=== PATIENT | female | born 1940 | race Caucasian/White ===

== ENCOUNTER → 2017-06-08 | Outpatient (REF) | payer MEDICARE, OTHER | LOC: M LAB REF 12:23 | PROVIDERS: ATTEND Family Medicine | DX: R30.0 Dysuria (principal) ==

== ENCOUNTER → 2017-12-18 | Outpatient (REF) | payer MEDICARE, OTHER ==
[2017-12-18 13:48] LABS: APPEARANCE, URINE HAZY (CLEAR); BACTERIA, URINE AUTO 2+ (NEGATIVE); BILIRUBIN, URINE AUTO NEGATIVE (NEGATIVE); BLOOD, URINE BLOOD NEGATIVE (NEGATIVE); COLOR, URINE YELLOW (YELLOW); GLUCOSE, URINE (UA) AUTO NEGATIVE (NEGATIVE); KETONE, URINE AUTO NEGATIVE (NEGATIVE); LEUKOCYTE ESTERASE, URINE AUTO NEGATIVE (NEGATIVE); MUCUS, URINE SMALL (NEGATIVE); NITRITE, URINE AUTO NEGATIVE (NEGATIVE); PROTEIN, URINE AUTO NEGATIVE (NEGATIVE); RBC, URINE AUTO 0 /HPF (0-3); SPECIFIC GRAVITY URINE AUTO 1.009 (1.002-1.035); SQUAMOUS EPITHELIAL CELL UR AU 0 /HPF (0-6); UROBILINOGEN, URINE AUTO 0.2 mg/dL (0.0-2.0); WBC, URINE AUTO 1 /HPF (0-3)
== END ==
LOC: M LAB REF 13:10
DX: N39.0 Urinary tract infection, site not specified (principal)
CPT/HCPCS: 81001

== ENCOUNTER → 2018-08-04 | Outpatient (REF) | payer MEDICARE, OTHER ==
[2018-08-04 19:10] LABS: CREATININE FOR GFR 0.85 MG/DL (0.55-1.30); GLOMERULAR FILTRATION RATE > 60.0 (>39)
[2018-08-04 19:10] LABS: BLOOD UREA NITROGEN 15 MG/DL (7-18)
== END ==
LOC: M LAB REF 17:17
DX: Z01.812 Encounter for preprocedural laboratory examination (principal); R91.8 Other nonspecific abnormal finding of lung field
CPT/HCPCS: 82565

== ENCOUNTER → 2018-08-16 | Outpatient (CLI) | payer MEDICARE, OTHER | LOC: M RAD 13:33 | DX: Z01.812 Encounter for preprocedural laboratory examination (principal); I26.99 Other pulmonary embolism without acute cor pulmonale; I51.7 Cardiomegaly; R06.00 Dyspnea, unspecified; R91.8 Other nonspecific abnormal finding of lung field | CPT/HCPCS: 71046 ==

== ENCOUNTER → 2018-08-16 | Outpatient (REF) | payer MEDICARE, OTHER ==
[2018-08-16 17:22] LABS: PLATELET COUNT, AUTOMATED 230 10^3/uL (150-450)
[2018-08-16 17:34] LABS: INR 0.89; PROTHROMBIN TIME 12.1 SECONDS (12.1-14.4)
[2018-08-16 17:35] LABS: PARTIAL THROMBOPLASTIN TIME 28.7 SECONDS (25.4-37.6)
== END ==
LOC: M LAB REF 16:58
DX: Z01.812 Encounter for preprocedural laboratory examination (principal); R91.8 Other nonspecific abnormal finding of lung field

== ENCOUNTER → 2019-01-18 | Outpatient (CLI) | payer MEDICARE, OTHER ==
--- NOTE | 2019-01-18 13:29 | REP ---
Left lower extremity Duplex Doppler venous ultrasound: Real time compression and duplex Doppler interrogation of the left lower extremity deep venous system is performed. The left common femoral, superficial femoral and popliteal veins are fully compressible with transducer pressure and demonstrate normal spontaneous and phasic flow, without evidence of deep venous thrombosis. Impression: No evidence of deep venous thrombosis of the left lower extremity femoral popliteal venous system. Electronically Signed by Jim Beltre MD 01/18/2019 01:20 P
== END ==
LOC: M RAD 12:35
PROVIDERS: ATTEND Internal Medicine Cardiovascular Disease
DX: R60.0 Localized edema (principal)

== ENCOUNTER → 2019-03-08 | Outpatient (REF) | payer MEDICARE, OTHER ==
[2019-03-08 19:16] LABS: BLOOD UREA NITROGEN 21 MG/DL (7-18); CREATININE FOR GFR 0.77 MG/DL (0.55-1.30); GLOMERULAR FILTRATION RATE > 60.0 (>39)
== END ==
LOC: M LAB REF 17:29
PROVIDERS: ATTEND Internal Medicine Pulmonary Disease
DX: J44.9 Chronic obstructive pulmonary disease, unspecified (principal)

== ENCOUNTER → 2019-03-14 | Outpatient (CLI) | payer MEDICARE, OTHER ==
[~2019-03-14] MED LIST: ISOVUE-370 76% 100ML VIAL (Q9967) As Ordered ONE
--- NOTE | 2019-03-14 11:08 | REP ---
The CT of the chest with IV contrast: Comparison is 08/04/2018. This is outside study). The patient has a known mediastinal mass. This mass was biopsied under CT guidance on 09/06/2018. The mediastinal mass is again identified on the study today. There is diffuse enhancement of this mass. There is a ring-shaped calcification along the medial margin of the mass, unchanged from the prior study. The mass today measures 4.0 by 2.7 cm and is not significantly changed from the comparison study. There is no other mediastinal mass or mediastinal adenopathy. There is no hilar adenopathy. There is no axillary adenopathy. There is a 8 ml ground-glass nodule in the right middle lobe on image 55. This is unchanged. There is a 2 ml calcified granuloma in the right lower lobe on image 56 and there are is a 4 ml calcified granuloma posteriorly in the right middle lobe on image 59. These are unchanged. There are no infiltrates. There are no pleural effusions. The thoracic aorta is unremarkable. Cardiac size is borderline enlarged, unchanged. The upper abdomen. There are three hepatic hypodensities, unchanged to in the right lobe and one in the left lobe, the largest is in the right lobe measuring 12 mm. These are unchanged and there are too small for further at characterization by CT. There is no adrenal mass. Impression: Mediastinal mass, unchanged. Calcified granulomas, unchanged. No adenopathy. No infiltrate or pleural effusion. There are three hepatic hypodensities, too small for further characterization by CT, unchanged. Electronically Signed by Jim Parmar MD 03/14/2019 11:00 A
== END ==
LOC: M RAD 08:03
PROVIDERS: ATTEND Thoracic Surgery (Cardiothoracic Vascular Surgery)
DX: R91.8 Other nonspecific abnormal finding of lung field (principal); R16.0 Hepatomegaly, not elsewhere classified
CPT/HCPCS: 71260; Q9967

== ENCOUNTER → 2019-06-16 | Outpatient (REF) | payer MEDICARE, OTHER ==
[2019-06-16 12:07] LABS: BLOOD UREA NITROGEN 14 MG/DL (7-18); CREATININE FOR GFR 0.94 MG/DL (0.55-1.30); GLOMERULAR FILTRATION RATE > 60.0 (>39)
== END ==
LOC: M LABDRAWC 11:05
PROVIDERS: ATTEND Thoracic Surgery (Cardiothoracic Vascular Surgery)
DX: D15.0 Benign neoplasm of thymus (principal)

== ENCOUNTER → 2019-06-17 | Outpatient (CLI) | payer MEDICARE, OTHER ==
--- NOTE | 2019-06-17 15:56 | REP ---
CT chest with IV contrast: History: Benign neoplasm of the thymus. 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 Comparison is made with chest CT study March 14, 2019 and August 06, 2018. CT contrast dose: 75 ml of intravenous Isovue 370 was administered however, there apparently was a failure of the intravenous site and an extravasation occurred. Accordingly, very poor intravascular contrast enhancement was achieved. Images were reviewed and this was discussed with the patient and it was elected not to re-inject her. CT findings: There is a partially calcified anterior mediastinal mass again noted. This measures 4.0 cm in greatest right to left by 3.0 cm in greatest anteroposterior by 3.7 cm in greatest craniocaudal span. On August 06, 2018 and by my measurements, the lesion measured 4.1 x 2.8 x 3.7 cm. It does not appear to have changed noticeably in this 11-month interval. No other mediastinal mass or adenopathy is observed. No pleural or pericardial effusion is seen. There are small low density nonenhancing foci in the liver consistent with cysts which are also unchanged. No adrenal lesion is seen. Visualized upper abdominal structures are unremarkable. The previously noted partially solid or ground-glass opacity in the right middle lobe appears less prominent. There is a granulomatous calcification in the right lower lobe which is unchanged. There is another in the right lower lobe which also appears calcified and unchanged. There is a calcified granuloma in the right middle lobe unchanged. No new pulmonary nodular density is appreciated. There is some mild linear fibrosis in the left base. Impression: 4.0 cm partially calcified anterior mediastinal mass without appreciable growth in the interval since the July 2018 study. No evidence of adenopathy. Electronically Signed by Kj Tellez MD 06/17/2019 07:47 P
== END ==
LOC: M RAD 12:08
PROVIDERS: ATTEND Thoracic Surgery (Cardiothoracic Vascular Surgery)
DX: C38.1 Malignant neoplasm of anterior mediastinum (principal); R91.8 Other nonspecific abnormal finding of lung field; D15.0 Benign neoplasm of thymus
CPT/HCPCS: 71260; Q9967

== ENCOUNTER → 2019-11-25 | Outpatient (CLI) | payer MEDICARE, OTHER ==
--- NOTE | 2019-11-25 14:22 | REP ---
REASON FOR EXAM: Followup benign neoplasm of the thymus. The prior examinations were reviewed, the latest of which is dated 06/17/2019. The lack of intravenous contrast decreases the sensitivity of the exam. The mediastinum and pulmonary edson are unchanged. There is a stable partially calcified soft tissue mass in the anterior mediastinum. There are no pleural or pericardial effusions. The imaged upper abdomen and imaged osseous structures are unchanged. Evaluation of the lung ford shows five new nodules in the right lung, two are in the right upper lobe both in the inferior aspect of the anterior segment, they both measure 7 mm in their greatest dimension. There is a 5 mm sized new nodule in the right middle lobe. There are two new right lower lobe nodules one measures 4 mm and the other measures 5 mm. There is an unchanged incidental calcified granuloma also seen in the right lower lobe. In the left lung there are two new nodules, one is in the upper lobe which measures 4 mm and the other is a pleural based nodule in the left lower lobe also measuring 4 mm. IMPRESSION: 1. Stable appearing mediastinal mass as described above. 2. There are multiple new lung nodules as described above. According to the revised Fleischner's Society criteria followup will be based on the largest nodule which measures 7 mm and for which a [address] scan of the chest is recommended. Electronically Signed by Duc Chiang DO 11/25/2019 03:13 P
== END ==
LOC: M RAD 12:23
PROVIDERS: ATTEND Thoracic Surgery (Cardiothoracic Vascular Surgery)
DX: D15.0 Benign neoplasm of thymus (principal)

== ENCOUNTER → 2020-02-05 | Outpatient (CLI) | payer MEDICARE, OTHER ==
[~2020-02-05] MED LIST changes: +ALEV1TAB PO; +AMLO5TAB6 PO; +BREO1INH3 INH; +IPRA6SP; -ISOVUE-370 76% 100ML VIAL (Q9967) As Ordered ONE; +VITATAB73 PO
== END ==
LOC: M LABSMTC 09:47
PROVIDERS: ATTEND Anesthesiology
DX: Z03.818 Encounter for observation for suspected exposure to other biological agents ruled out (principal); Z11.59 Encounter for screening for other viral diseases
CPT/HCPCS: C9803; U0003

== ENCOUNTER 2020-02-08 09:45 | Day surgery (SDC) | payer MEDICARE, OTHER ==
[~2020-02-08] VITALS: Ht 157.5 cm; Wt 88.5 kg
[~2020-02-08 09:45] MED LIST changes: +NS 1,000 ML IV ONE
--- NOTE | 2020-02-08 10:55 | ROOR ---
Patient Name: Mary Kay Lowery Procedure Date: 02/08/2020 10:30 AM Date of : 1940 Age: 79 Room: [facility] Gender: Female Note Status: Finalized Procedure: Total Colonoscopy to Cecum Indications: Screening in patient at increased risk: Family history of 1st-degree relative with colorectal cancer, High risk colon cancer surveillance: Personal history of colonic polyps Providers: Dmitry Johnson MD Referring MD: Guy Chamberlain MD Requesting Provider: Medicines: Monitored Anesthesia Care Complications: No immediate complications. Procedure: Pre-Anesthesia Assessment: - The heart rate, respiratory rate, oxygen saturations, blood pressure, adequacy of pulmonary ventilation, and response to care were monitored throughout the procedure. The Colonoscope was introduced through the anus and advanced to the cecum, identified by appendiceal orifice and ileocecal valve. The colonoscopy was performed without difficulty. The patient tolerated the procedure well. The quality of the bowel preparation was excellent. Findings: The perianal and digital rectal examinations were normal. Non-bleeding internal hemorrhoids were found during retroflexion. The hemorrhoids were small and Grade I (internal hemorrhoids that do not prolapse). Multiple small and large-mouthed diverticula were found in the recto-sigmoid colon, sigmoid colon and descending colon. The exam was otherwise without abnormality on direct and retroflexion views. Impression: - Non-bleeding internal hemorrhoids. - Diverticulosis in the recto-sigmoid colon, in the sigmoid colon and in the descending colon. - The examination was otherwise normal on direct and retroflexion views. - No specimens collected. - The exam was otherwise normal to the cecum. Recommendation: - Patient has a contact number available for emergencies. The signs and symptoms of potential delayed complications were discussed with the patient. Return to normal activities tomorrow. Written discharge instructions were provided to the patient. - High fiber diet. - Discharge patient to home. - Continue present medications. - Repeat colonoscopy for symptoms only. - Return to referring physician. - The findings and recommendations were discussed with the patient's family. Dmitry Johnson MD Dmitry Johnson MD 02/08/2020 10:55:11 AM Electronically signed by Dmitry Johnson MD Number of Addenda: 0 Note Initiated On: 02/08/2020 10:30 AM Estimated Blood Loss: Estimated blood loss: none.
[2020-02-08] MEDS ORDERED: propofoL 200 MG/20 ML VIAL As Ordered ONE (11:00)
[2020-02-08 11:15] VITALS: BP 124/67
== END 2020-02-08 11:23 | disposition home or self-care (01) ==
LOC: M OPP 09:45
PROVIDERS: ATTEND Internal Medicine Gastroenterology
DX: Z12.11 Encounter for screening for malignant neoplasm of colon (principal); Z80.0 Family history of malignant neoplasm of digestive organs; Z86.010 Personal history of colon polyps; K64.0 First degree hemorrhoids; K57.30 Diverticulosis of large intestine without perforation or abscess without bleeding; Z79.899 Other long term (current) drug therapy

== ENCOUNTER → 2020-05-01 | Outpatient (REF) | payer MEDICARE, OTHER ==
[~2020-05-01] MED LIST changes: +AMLO1TAB24 PO; -AMLO5TAB6 PO; -NS 1,000 ML IV ONE
[2020-05-01 13:53] LABS: BLOOD UREA NITROGEN 22 MG/DL (7-18); CREATININE FOR GFR 0.83 MG/DL (0.55-1.30); GLOMERULAR FILTRATION RATE > 60.0 (>39)
== END ==
LOC: M LABDRAWC 07:25
PROVIDERS: ATTEND Thoracic Surgery (Cardiothoracic Vascular Surgery)
DX: Z01.812 Encounter for preprocedural laboratory examination (principal); R91.8 Other nonspecific abnormal finding of lung field

== ENCOUNTER → 2020-05-08 | Outpatient (CLI) | payer MEDICARE, OTHER ==
[~2020-05-08] MED LIST changes: +ISOVUE-370 76% 100ML VIAL As Ordered ONE
--- NOTE | 2020-05-29 14:25 | REP ---
CONTRAST-ENHANCED CHEST CT: HISTORY: Follow up abnormal lung findings. TECHNIQUE: Axial contrast-enhanced images from the thoracic inlet to the upper abdomen with coronal and sagittal reformations using 75 cc Isovue 370 intravenous contrast material. COMPARISON: Multiple examinations between 11/25/19 and 08/04/18. FINDINGS: The known anterior mediastinal mass with partial rim calcification is unchanged and represents a chronic benign thymic lesion. The bilateral lung ford are well-aerated and demonstrate minimal bibasilar fibroatelectatic changes. The presumed new nodules on 11/25/19 examination have been confirmed to be stable on 08/04/18 examination. A calcified granuloma in the right lower lobe is also identified and stable. No new consolidation, significant nodule or mass lesion is appreciated. Further evaluation demonstrates normal stable appearance to the thoracic aorta, pulmonary vasculature and heart/pericardium. No adenopathy noted. The tracheobronchial tree is patent. No effusion or pneumothorax. Musculoskeletal structures demonstrate age related changes without acute osseous abnormality. Limited upper abdomen demonstrate normal bilateral adrenal glands along with stable hepatic hypodensities. IMPRESSION: 1. Previously suggested new noncalcified nodules have all been confirmed to be stable through 08/04/18 and chronic. 2. No new acute mediastinal or pleuroparenchymal process appreciated. 3. Stable known anterior mediastinal mass, unchanged compared to 2018. [facility]
== END ==
LOC: M RAD 08:08
PROVIDERS: ATTEND Thoracic Surgery (Cardiothoracic Vascular Surgery)
DX: R91.8 Other nonspecific abnormal finding of lung field (principal)
CPT/HCPCS: 71260; Q9967

== ENCOUNTER → 2020-06-01 | Outpatient (REF) | payer MEDICARE, OTHER ==
[~2020-06-01] MED LIST changes: -ISOVUE-370 76% 100ML VIAL As Ordered ONE
[2020-06-01 17:19] LABS: ALBUMIN 4.1 GM/DL (3.2-5.2); ALT/SGPT 25 U/L (12-78); BILIRUBIN,TOTAL 0.6 MG/DL (0.2-1.0); BLOOD UREA NITROGEN 18 MG/DL (7-18); CALCIUM LEVEL 9.5 MG/DL (8.8-10.2); CARBON DIOXIDE LEVEL 30 MEQ/L (21-32); CHLORIDE LEVEL 107 MEQ/L (98-107); CHOLESTEROL LEVEL 212 MG/DL (<200); CHOLESTEROL RISK RATIO 3.164 (<5); FREE T4 1.04 NG/DL (0.76-1.46); GLOMERULAR FILTRATION RATE > 60.0 (>39); GLUCOSE, FASTING 94 MG/DL (70-100); HDL CHOLESTEROL 67 MG/DL (>40); LDL CHOLESTEROL 130 MG/DL (<100); NON-HDL-C 145 MG/DL; POTASSIUM SERUM 4.2 MEQ/L (3.5-5.1); SODIUM LEVEL 141 MEQ/L (136-145); TOTAL PROTEIN 6.8 GM/DL (6.4-8.2); TRIGLYCERIDES LEVEL 77 MG/DL (<150)
== END ==
LOC: M LABDRAWC 15:52
PROVIDERS: ATTEND Family Medicine
DX: I10 Essential (primary) hypertension (principal); E78.00 Pure hypercholesterolemia, unspecified; E07.9 Disorder of thyroid, unspecified

== ENCOUNTER → 2020-10-23 | Outpatient (REF) | payer MEDICARE, OTHER ==
[2020-10-23 18:04] LABS: BLOOD UREA NITROGEN 19 MG/DL (7-18); CREATININE FOR GFR 0.85 MG/DL (0.55-1.30); GLOMERULAR FILTRATION RATE > 60.0 (>39)
== END ==
LOC: M LABDRAWC 16:08
PROVIDERS: ATTEND Orthopaedic Surgery
DX: R22.31 Localized swelling, mass and lump, right upper limb (principal)

== ENCOUNTER → 2020-11-26 | Outpatient (CLI) | payer MEDICARE, OTHER ==
--- NOTE | 2020-11-26 11:40 | REP ---
INDICATION: EZRA AIRAM OF THYMUS, COPD COMPARISON: Multiple examinations dating through 08/06/2018 TECHNIQUE: Axial noncontrast images from the thoracic inlet to the upper abdomen with coronal and sagittal reformations. This CT examination was performed using the following dose reduction techniques: Automated exposure control, adjustment of mA and/or kv according to the patient's size, and use of iterative reconstruction technique. FINDINGS: The bilateral lung ford are relatively well aerated with few small scattered calcified and noncalcified densities again noted and relatively unchanged. No significant focal consolidation or mass lesion. No pleural effusion. No pneumothorax. Tracheobronchial tree is patent. Mediastinum demonstrates normal thoracic aorta, pulmonary vasculature, and heart/pericardium. Stable partially rim calcified anterior mediastinal thymic lesion measuring roughly 4.4 cm maximal diameter is essentially unchanged. No significant acute adenopathy. Musculoskeletal structures are intact. IMPRESSION: 1. Stable scattered chronic interstitial changes and small scattered calcified and noncalcified nodular densities relatively unchanged compared through 2018. 2. Stable benign appearing anteromedial mediastinal/thymic lesion. 3. No new acute mediastinal or pleuroparenchymal process appreciated. <Electronically signed by Christopher Perez > 11/26/20 [id number]
== END ==
LOC: M RAD 10:50
PROVIDERS: ATTEND Thoracic Surgery (Cardiothoracic Vascular Surgery)
DX: D15.0 Benign neoplasm of thymus (principal); J44.9 Chronic obstructive pulmonary disease, unspecified

== ENCOUNTER → 2020-12-07 | Outpatient (REF) | payer MEDICARE, OTHER ==
[2020-12-07 12:15] LABS: ALBUMIN 3.9 GM/DL (3.2-5.2); ALT/SGPT 23 U/L (12-78); BILIRUBIN,TOTAL 0.6 MG/DL (0.2-1.0); BLOOD UREA NITROGEN 17 MG/DL (7-18); CALCIUM LEVEL 9.4 MG/DL (8.8-10.2); CARBON DIOXIDE LEVEL 31 MEQ/L (21-32); CHLORIDE LEVEL 107 MEQ/L (98-107); CHOLESTEROL LEVEL 211 MG/DL (<200); CHOLESTEROL RISK RATIO 3.102 (<5); CREATININE FOR GFR 0.78 MG/DL (0.55-1.30); GLOMERULAR FILTRATION RATE > 60.0 (>39); GLUCOSE, FASTING 95 MG/DL (70-100); HDL CHOLESTEROL 68 MG/DL (>40); LDL CHOLESTEROL 123 MG/DL (<100); NON-HDL-C 143 MG/DL; POTASSIUM SERUM 4.5 MEQ/L (3.5-5.1); SODIUM LEVEL 140 MEQ/L (136-145); TOTAL PROTEIN 6.8 GM/DL (6.4-8.2); TRIGLYCERIDES LEVEL 101 MG/DL (<150)
== END ==
LOC: M LABDRAWC 11:07
PROVIDERS: ATTEND Family Medicine
DX: I10 Essential (primary) hypertension (principal); E78.00 Pure hypercholesterolemia, unspecified; E07.9 Disorder of thyroid, unspecified

== ENCOUNTER → 2021-06-12 | Outpatient (REF) | payer MEDICARE, OTHER ==
[2021-06-12 16:10] LABS: BASO % 0.8 % (0.0-1.0); EOS # 0.2 10^3/uL (0.0-0.5); EOS % 3.3 % (0.0-3.0); HEMATOCRIT 38.2 % (36.0-47.0); HEMOGLOBIN 12.6 g/dl (12.0-15.5); LYMPH # 1.6 10^3/uL (1.5-5.0); LYMPH % 30.1 % (24.0-44.0); MEAN CORPUSCULAR HEMOGLOBIN 34.1 pg (27.0-33.0); MEAN CORPUSCULAR VOLUME 103.2 fl (80.0-96.0); MONO # 0.7 10^3/uL (0.0-0.8); MONO % 12.5 % (2.0-8.0); NEUTROPHILS # 2.8 10^3/uL (1.5-8.5); NEUTROPHILS % 52.9 % (36.0-66.0); PLATELET COUNT, AUTOMATED 223 10^3/uL (150-450); WHITE BLOOD COUNT 5.2 10^3/uL (4.0-10.0)
[2021-06-12 16:45] LABS: ALBUMIN 3.5 GM/DL (3.2-5.2); ALT/SGPT 27 U/L (12-78); BILIRUBIN,TOTAL 0.3 MG/DL (0.2-1.0); BLOOD UREA NITROGEN 17 MG/DL (7-18); CALCIUM LEVEL 9.7 MG/DL (8.8-10.2); CARBON DIOXIDE LEVEL 30 MEQ/L (21-32); CHLORIDE LEVEL 110 MEQ/L (98-107); CHOLESTEROL LEVEL 179 MG/DL (<200); CHOLESTEROL RISK RATIO 3.086 (<5); CREATININE FOR GFR 0.71 MG/DL (0.55-1.30); FREE THYROXINE INDEX 2.7 % (1.3-4.8); GLOMERULAR FILTRATION RATE > 60.0 (>32); GLUCOSE, FASTING 100 MG/DL (70-100); HDL CHOLESTEROL 58 MG/DL (>40); LDL CHOLESTEROL 92 MG/DL (<100); NON-HDL-C 121 MG/DL; POTASSIUM SERUM 4.5 MEQ/L (3.5-5.1); SODIUM LEVEL 141 MEQ/L (136-145); T UPTAKE 33 % (30-39); THYROXINE (T4) 8.1 UG/DL (4.5-12.0); TOTAL PROTEIN 6.3 GM/DL (6.4-8.2); TRIGLYCERIDES LEVEL 144 MG/DL (<150)
== END ==
LOC: M LABDRAWC 15:42
PROVIDERS: ATTEND Family Medicine
DX: I10 Essential (primary) hypertension (principal); E78.00 Pure hypercholesterolemia, unspecified; E07.9 Disorder of thyroid, unspecified

== ENCOUNTER → 2021-06-26 | Outpatient (CLI) | payer MEDICARE, OTHER ==
--- NOTE | 2021-06-26 15:37 | REP ---
INDICATION: BENIGN NEOPLASM OF SINUS COMPARISON: Multiple the latest 11/26/2020 also without contrast TECHNIQUE: Standard helical technique without contrast FINDINGS: Once again, there is a partially calcified anterior mediastinal mass which is unchanged. Once again, this measures approximately 4 cm in its greatest dimension. No additional mediastinal masses have developed. There is no evidence of hilar adenopathy. Stable subcarinal lymph nodes are noted status quo. The largest measures 1.1 cm. That lymph node has been stable since CT of the chest of 06/17/2019. No pleural or pericardial effusions have developed. There is no significant change in appearance of the imaged upper abdomen or imaged osseous structures. Evaluation of the lung ford shows an unchanged 6 mm size nodule in the right middle lobe region. This abuts the fissure and could potentially be in the inferior most aspect of the anterior segment of the right upper lobe. It is slightly obscured by motion artifact. There is an additional nodule in the right middle lobe which measures 5 mm. This is better imaged on today's exam but also appears stable compared other older priors as well. Once again, there are numerous pulmonary nodules in the 2-4 mm range. These are too numerous to count or individually assess. These also appears stable compared to the 06/17/[address] Note is again made of incidental calcified granulomas. No definite new abnormal nodules, masses, or opacities have developed. IMPRESSION: Stable CT findings as described above. <Electronically signed by Duc Chiang > 06/26/21 [id number]
== END ==
LOC: M PLAIMG 14:33
PROVIDERS: ATTEND Thoracic Surgery (Cardiothoracic Vascular Surgery)
DX: D15.0 Benign neoplasm of thymus (principal)

== ENCOUNTER → 2021-07-02 | Outpatient (CLI) | payer MEDICARE, OTHER ==
--- NOTE | 2021-07-02 11:42 | REP ---
INDICATION: ABD BLOATING. COMPARISON: None. TECHNIQUE: Transabdominal ultrasound FINDINGS: Multiple ultrasonographic images of the liver show the hepatic parenchymal echo pattern to be within normal limits. There is an incidental 1 cm sized anechoic structure which exhibits posterior wall enhancement and increased through transmission consistent with simple cysts. There is no intrahepatic or extrahepatic ductal dilatation. The common bile duct measures 4 mm. Multiple ultrasonographic images of the gallbladder show no abnormal echogenic foci within the gallbladder lumen, gallbladder wall thickening, or pericholecystic edema. The imaged portion of the pancreas is within normal limits. The spleen measures 9 x 10.3 x4.2 cm. No splenic or perisplenic abnormalities are noted. The right kidney measures 11.1 x 5.7 x 4.9 cm. The renal cortical echotexture is within normal limits. Corticomedullary differentiation is preserved. There is no hydronephrosis. There is irregular fullness of the mid polar region laterally. The left kidney measures 12.8 x 4.2 x 5.5 cm. The renal cortical echotexture is within normal limits. Corticomedullary differentiation is preserved. There is no hydronephrosis. There is fullness of the mid polar region laterally.. The imaged portion of the abdominal aorta is within normal limits. There is no evidence of free fluid. IMPRESSION: 1. Probable bilateral renal cortical lobulations as described above, however, since are no priors comparison pre and postcontrast enhanced renal CT is recommended for complete evaluation. 2. Incidental simple hepatic cyst <Electronically signed by Duc Chiang > 07/02/21 [id number]
--- NOTE | 2021-07-02 14:41 | REP ---
INDICATION: ABD BLOATING. COMPARISON: None. TECHNIQUE: Real-time sonographic evaluation of pelvis performed utilizing transabdominal technique. FINDINGS: The bladder measures 4.6 x 3.4 x 7.6 cm with no gross abnormality. No pelvic mass is seen. No free fluid is seen. The uterus and ovaries have been surgically removed previously. IMPRESSION: Negative pelvic ultrasound status post JOE BSO. <Electronically signed by Jim Beltre > 07/02/21 [id number]
== END ==
LOC: M RAD 08:57
PROVIDERS: ATTEND Family Medicine
DX: R14.0 Abdominal distension (gaseous) (principal)

== ENCOUNTER → 2021-07-03 | Outpatient (REF) | payer MEDICARE, OTHER ==
[2021-07-03 16:10] LABS: BASO % 0.5 % (0.0-1.0); EOS # 0.1 10^3/uL (0.0-0.5); EOS % 1.5 % (0.0-3.0); HEMATOCRIT 40.9 % (36.0-47.0); HEMOGLOBIN 13.4 g/dl (12.0-15.5); LYMPH # 0.9 10^3/uL (1.5-5.0); LYMPH % 15.3 % (24.0-44.0); MEAN CORPUSCULAR HGB CONC 32.8 g/dl (32.0-36.5); MEAN CORPUSCULAR VOLUME 103.8 fl (80.0-96.0); MONO # 0.8 10^3/uL (0.0-0.8); MONO % 12.4 % (2.0-8.0); NEUTROPHILS # 4.3 10^3/uL (1.5-8.5); PLATELET COUNT, AUTOMATED 180 10^3/uL (150-450); RED BLOOD COUNT 3.94 10^6/uL (4.00-5.40); WHITE BLOOD COUNT 6.1 10^3/uL (4.0-10.0)
[2021-07-03 16:36] LABS: BLOOD UREA NITROGEN 20 MG/DL (7-18); CALCIUM LEVEL 9.7 MG/DL (8.8-10.2); CARBON DIOXIDE LEVEL 31 MEQ/L (21-32); CHLORIDE LEVEL 107 MEQ/L (98-107); CREATININE FOR GFR 0.77 MG/DL (0.55-1.30); GLOMERULAR FILTRATION RATE > 60.0 (>32); GLUCOSE, FASTING 98 MG/DL (70-100); POTASSIUM SERUM 4.8 MEQ/L (3.5-5.1); SODIUM LEVEL 139 MEQ/L (136-145)
== END ==
LOC: M LABDRAWC 15:43
PROVIDERS: ATTEND Family Medicine
DX: D75.89 Other specified diseases of blood and blood-forming organs (principal); I10 Essential (primary) hypertension

== ENCOUNTER → 2021-12-18 | Outpatient (REF) | payer MEDICARE, OTHER ==
[2021-12-18 11:47] LABS: BASO % 0.6 % (0.0-1.0); EOS # 0.1 10^3/uL (0.0-0.5); HEMATOCRIT 38.8 % (36.0-47.0); LYMPH # 1.9 10^3/uL (1.5-5.0); LYMPH % 38.1 % (24.0-44.0); MEAN CORPUSCULAR HEMOGLOBIN 33.6 pg (27.0-33.0); MEAN CORPUSCULAR HGB CONC 33.5 g/dl (32.0-36.5); MEAN CORPUSCULAR VOLUME 100.3 fl (80.0-96.0); MONO # 0.6 10^3/uL (0.0-0.8); MONO % 12.1 % (2.0-8.0); NEUTROPHILS # 2.3 10^3/uL (1.5-8.5); PLATELET COUNT, AUTOMATED 204 10^3/uL (150-450); RED BLOOD COUNT 3.87 10^6/uL (4.00-5.40); WHITE BLOOD COUNT 4.9 10^3/uL (4.0-10.0)
[2021-12-18 12:13] LABS: ALT/SGPT 27 U/L (12-78); BILIRUBIN,TOTAL 0.6 MG/DL (0.2-1.0); BLOOD UREA NITROGEN 16 MG/DL (7-18); CARBON DIOXIDE LEVEL 28 MEQ/L (21-32); CHLORIDE LEVEL 108 MEQ/L (98-107); CHOLESTEROL LEVEL 200 MG/DL (<200); CHOLESTEROL RISK RATIO 2.857 (<5); CREATININE FOR GFR 0.71 MG/DL (0.55-1.30); GLOMERULAR FILTRATION RATE > 60.0 (>32); GLUCOSE, FASTING 92 MG/DL (70-100); HDL CHOLESTEROL 70 MG/DL (>40); LDL CHOLESTEROL 115 MG/DL (<100); NON-HDL-C 130 MG/DL; POTASSIUM SERUM 4.5 MEQ/L (3.5-5.1); SODIUM LEVEL 142 MEQ/L (136-145); TOTAL PROTEIN 6.8 GM/DL (6.4-8.2); TRIGLYCERIDES LEVEL 74 MG/DL (<150)
== END ==
LOC: M LABDRAWC 11:09
PROVIDERS: ATTEND Family Medicine
DX: I10 Essential (primary) hypertension (principal); E78.00 Pure hypercholesterolemia, unspecified

== ENCOUNTER → 2021-12-23 | Outpatient (REF) | payer MEDICARE, OTHER ==
[2021-12-23 20:14] LABS: FOLATE > 24.0 NG/ML
[2021-12-24 18:02] LABS: VITAMIN B12 LEVEL 1239 PG/ML
== END ==
LOC: M LAB REF 12:11
PROVIDERS: ATTEND Family Medicine
DX: R30.0 Dysuria (principal); D72.821 Monocytosis (symptomatic)

== ENCOUNTER → 2021-12-25 | Outpatient (CLI) | payer MEDICARE, OTHER | LOC: M RAD 09:27 | PROVIDERS: ATTEND Internal Medicine Pulmonary Disease | DX: D15.0 Benign neoplasm of thymus (principal) ==

== ENCOUNTER → 2022-03-25 | Outpatient (CLI) | payer MEDICARE, OTHER | LOC: M PLAIMG 13:20 | PROVIDERS: ATTEND Orthopaedic Surgery | DX: M47.26 Other spondylosis with radiculopathy, lumbar region (principal) ==

== ENCOUNTER → 2022-05-20 | Outpatient (REF) | payer MEDICARE, OTHER ==
[2022-05-20 11:48] LABS: PLATELET COUNT, AUTOMATED 205 10^3/uL (150-450)
[2022-05-20 12:02] LABS: INR 0.94
[2022-05-20 12:03] LABS: PARTIAL THROMBOPLASTIN TIME 28.9 SECONDS (25.9-37.0)
[2022-05-20 12:28] LABS: COLLAGEN EPINEPHRINE 131 SECONDS (74-162)
== END ==
LOC: M LABDRAWC 10:58
PROVIDERS: ATTEND Physical Medicine & Rehabilitation
DX: M47.26 Other spondylosis with radiculopathy, lumbar region (principal); Z79.01 Long term (current) use of anticoagulants

== ENCOUNTER → 2022-06-04 | Outpatient (CLI) | payer MEDICARE, OTHER | LOC: M RAD 10:11 | PROVIDERS: ATTEND Surgery | DX: C37 Malignant neoplasm of thymus (principal) ==

== ENCOUNTER → 2022-06-18 | Outpatient (REF) | payer MEDICARE, OTHER ==
[2022-06-18 12:40] LABS: BASO % 0.6 % (0.0-1.0); EOS # 0.1 10^3/uL (0.0-0.5); EOS % 2.7 % (0.0-3.0); HEMOGLOBIN 13.1 g/dl (12.0-15.5); LYMPH # 1.7 10^3/uL (1.5-5.0); LYMPH % 32.7 % (24.0-44.0); MEAN CORPUSCULAR HEMOGLOBIN 33.4 pg (27.0-33.0); MEAN CORPUSCULAR VOLUME 104.6 fl (80.0-96.0); MONO # 0.6 10^3/uL (0.0-0.8); MONO % 10.7 % (2.0-8.0); NEUTROPHILS # 2.7 10^3/uL (1.5-8.5); NEUTROPHILS % 52.9 % (36.0-66.0); PLATELET COUNT, AUTOMATED 204 10^3/uL (150-450); RED BLOOD COUNT 3.92 10^6/uL (4.00-5.40); WHITE BLOOD COUNT 5.1 10^3/uL (4.0-10.0)
[2022-06-18 13:20] LABS: ALBUMIN 3.7 GM/DL (3.2-5.2); ALT/SGPT 22 U/L (12-78); BILIRUBIN,TOTAL 0.4 MG/DL (0.2-1.0); BLOOD UREA NITROGEN 16 MG/DL (7-18); CALCIUM LEVEL 9.1 MG/DL (8.8-10.2); CARBON DIOXIDE LEVEL 28 MEQ/L (21-32); CHLORIDE LEVEL 109 MEQ/L (98-107); CHOLESTEROL LEVEL 201 MG/DL (<200); CHOLESTEROL RISK RATIO 3.045 (<5); CREATININE FOR GFR 0.84 MG/DL (0.55-1.30); GLOMERULAR FILTRATION RATE > 60.0 (>32); GLUCOSE, FASTING 134 MG/DL (70-100); HDL CHOLESTEROL 66 MG/DL (>40); LDL CHOLESTEROL 103 MG/DL (<100); NON-HDL-C 135 MG/DL; POTASSIUM SERUM 4.4 MEQ/L (3.5-5.1); SODIUM LEVEL 143 MEQ/L (136-145); TOTAL PROTEIN 6.6 GM/DL (6.4-8.2); TRIGLYCERIDES LEVEL 160 MG/DL (<150)
== END ==
LOC: M LABDRAWC 11:32
PROVIDERS: ATTEND Family Medicine
DX: E78.00 Pure hypercholesterolemia, unspecified (principal); K21.9 Gastro-esophageal reflux disease without esophagitis; E07.9 Disorder of thyroid, unspecified

== ENCOUNTER → 2022-07-10 | Outpatient (REF) | payer MEDICARE, OTHER ==
[2022-07-10 12:30] LABS: BASO # 0.1 10^3/uL (0.0-0.2); BASO % 0.9 % (0.0-1.0); EOS # 0.2 10^3/uL (0.0-0.5); HEMATOCRIT 40.1 % (36.0-47.0); HEMOGLOBIN 12.9 g/dl (12.0-15.5); LYMPH # 1.7 10^3/uL (1.5-5.0); LYMPH % 31.4 % (24.0-44.0); MEAN CORPUSCULAR HEMOGLOBIN 33.7 pg (27.0-33.0); MEAN CORPUSCULAR HGB CONC 32.2 g/dl (32.0-36.5); MEAN CORPUSCULAR VOLUME 104.7 fl (80.0-96.0); MONO # 0.7 10^3/uL (0.0-0.8); MONO % 13.2 % (2.0-8.0); NEUTROPHILS # 2.7 10^3/uL (1.5-8.5); NEUTROPHILS % 51.3 % (36.0-66.0); PLATELET COUNT, AUTOMATED 196 10^3/uL (150-450); RED BLOOD COUNT 3.83 10^6/uL (4.00-5.40); WHITE BLOOD COUNT 5.3 10^3/uL (4.0-10.0)
[2022-07-10 13:01] LABS: BLOOD UREA NITROGEN 18 MG/DL (7-18); CALCIUM LEVEL 9.4 MG/DL (8.8-10.2); CARBON DIOXIDE LEVEL 30 MEQ/L (21-32); CHLORIDE LEVEL 108 MEQ/L (98-107); GLOMERULAR FILTRATION RATE > 60.0 (>32); GLUCOSE, FASTING 96 MG/DL (70-100); POTASSIUM SERUM 4.7 MEQ/L (3.5-5.1); SODIUM LEVEL 141 MEQ/L (136-145)
[2022-07-10 13:24] LABS: HEMOGLOBIN A1c 5.6 %
[2022-07-11 10:00] LABS: ATYPICAL LYMPH 3 % (0-5); EOSINOPHILS 4 % (0-3); LYMPHOCYTES 29 % (16-44); MONOCYTES 14 % (0-5); MYELOCYTES 1 % (0-0); NEUTROPHILS 46 % (28-66)
[2022-07-11 10:03] LABS: PLATELET ESTIMATE NORMAL (NORMAL)
== END ==
LOC: M LABDRAWC 11:39
PROVIDERS: ATTEND Family Medicine
DX: D75.89 Other specified diseases of blood and blood-forming organs (principal); I10 Essential (primary) hypertension; R73.01 Impaired fasting glucose

== ENCOUNTER → 2022-12-18 | Outpatient (REF) | payer MEDICARE, OTHER ==
[2022-12-18 12:33] LABS: BASO % 0.8 % (0.0-1.0); EOS # 0.1 10^3/uL (0.0-0.5); EOS % 2.7 % (0.0-3.0); HEMATOCRIT 41.5 % (36.0-47.0); HEMOGLOBIN 13.3 g/dl (12.0-15.5); LYMPH # 1.2 10^3/uL (1.5-5.0); LYMPH % 25.6 % (24.0-44.0); MEAN CORPUSCULAR HEMOGLOBIN 33.8 pg (27.0-33.0); MEAN CORPUSCULAR VOLUME 105.3 fl (80.0-96.0); MONO # 0.6 10^3/uL (0.0-0.8); MONO % 13.2 % (2.0-8.0); NEUTROPHILS # 2.7 10^3/uL (1.5-8.5); NEUTROPHILS % 57.3 % (36.0-66.0); PLATELET COUNT, AUTOMATED 230 10^3/uL (150-450); RED BLOOD COUNT 3.94 10^6/uL (4.00-5.40); WHITE BLOOD COUNT 4.8 10^3/uL (4.0-10.0)
[2022-12-18 12:34] LABS: BLOOD UREA NITROGEN 16 MG/DL (9-23); CALCIUM LEVEL 9.4 MG/DL (8.3-10.6); CARBON DIOXIDE LEVEL 30 MMOL/L (20-31); CHLORIDE LEVEL 107 MMOL/L (98-107); CREATININE FOR GFR 0.81 MG/DL (0.55-1.30); GLOMERULAR FILTRATION RATE > 60.0 (>32); GLUCOSE, FASTING 96 MG/DL (74-106); POTASSIUM SERUM 4.3 MMOL/L (3.5-5.1); SODIUM LEVEL 141 MMOL/L (136-145)
[2022-12-18 12:38] LABS: FERRITIN 90.6 NG/ML (7.3-270.7)
[2022-12-18 13:18] LABS: HEMOGLOBIN A1c 5.6 % (4.0-6.0)
== END ==
LOC: M LABDRAWC 11:21
PROVIDERS: ATTEND Family Medicine
DX: D64.9 Anemia, unspecified (principal); I10 Essential (primary) hypertension; Z79.899 Other long term (current) drug therapy

== ENCOUNTER → 2023-06-09 | Outpatient (CLI) | payer MEDICARE, OTHER ==
[~2023-06-09] MED LIST changes: +FAMO20TA5; +FEXO-112; +FOLI1TAB11 PO; +NOXI1TAB PO; +REST0.05; +VITA100C8; +VITA100T59 PO; +ZINC220CA PO
== END ==
LOC: M PLAIMG 09:13
PROVIDERS: ATTEND Internal Medicine Pulmonary Disease
DX: R91.8 Other nonspecific abnormal finding of lung field (principal)

== ENCOUNTER → 2023-12-21 | Outpatient (REF) | payer MEDICARE, OTHER ==
[2023-12-21 11:58] LABS: BASO # 0.1 10^3/uL (0.0-0.2); BASO % 0.9 % (0.0-1.0); EOS # 0.1 10^3/uL (0.0-0.5); EOS % 2.6 % (0.0-3.0); HEMATOCRIT 39.9 % (36.0-47.0); LYMPH # 1.6 10^3/uL (1.5-5.0); LYMPH % 29.7 % (24.0-44.0); MEAN CORPUSCULAR HEMOGLOBIN 34.1 pg (27.0-33.0); MEAN CORPUSCULAR HGB CONC 32.6 g/dl (32.0-36.5); MEAN CORPUSCULAR VOLUME 104.7 fl (80.0-96.0); MONO # 0.8 10^3/uL (0.0-0.8); MONO % 14.4 % (2.0-8.0); NEUTROPHILS # 2.8 10^3/uL (1.5-8.5); NEUTROPHILS % 52.2 % (36.0-66.0); PLATELET COUNT, AUTOMATED 217 10^3/uL (150-450); RED BLOOD COUNT 3.81 10^6/uL (4.00-5.40); WHITE BLOOD COUNT 5.4 10^3/uL (4.0-10.0)
[2023-12-21 13:22] LABS: ALBUMIN 3.8 G/DL (3.2-5.2); ALKALINE PHOSPHATASE 50 U/L (46-116); ALT/SGPT 22 U/L (7.0-40); AST/SGOT 14 U/L (<34); BILIRUBIN,TOTAL 0.5 MG/DL (0.3-1.2); BLOOD UREA NITROGEN 18 MG/DL (9-23); CALCIUM LEVEL 9.2 MG/DL (8.3-10.6); CARBON DIOXIDE LEVEL 29 MMOL/L (20-31); CHLORIDE LEVEL 105 MMOL/L (98-107); CHOLESTEROL LEVEL 202 MG/DL (<200); CHOLESTEROL RISK RATIO 2.94 (<5); CREATININE FOR GFR 0.79 MG/DL (0.55-1.30); GLOMERULAR FILTRATION RATE > 60.0 (>32); GLUCOSE, FASTING 92 MG/DL (74-106); HDL CHOLESTEROL 68.5 MG/DL (>40); LDL CHOLESTEROL 118.7 MG/DL (<100); NON-HDL-C 133.5 MG/DL; POTASSIUM SERUM 4.2 MMOL/L (3.5-5.1); SODIUM LEVEL 140 MMOL/L (136-145); THYROID STIMULATING HORMONE 2.526 uIU/ML (0.55-4.78); TOTAL PROTEIN 6.5 G/DL (5.7-8.2); TRIGLYCERIDES LEVEL 74 MG/DL (<150)
== END ==
LOC: M LABDRAWC 10:39
PROVIDERS: ATTEND Family Medicine
DX: I10 Essential (primary) hypertension (principal); E78.00 Pure hypercholesterolemia, unspecified; E07.9 Disorder of thyroid, unspecified

== ENCOUNTER → 2024-03-02 | Outpatient (REF) | payer MEDICARE, OTHER ==
[2024-03-02 11:20] LABS: BASO % 0.6 % (0.0-1.0); EOS # 0.1 10^3/uL (0.0-0.5); EOS % 2.5 % (0.0-3.0); HEMATOCRIT 38.8 % (36.0-47.0); LYMPH # 1.7 10^3/uL (1.5-5.0); LYMPH % 32.6 % (24.0-44.0); MEAN CORPUSCULAR HEMOGLOBIN 34.4 pg (27.0-33.0); MEAN CORPUSCULAR HGB CONC 33.5 g/dl (32.0-36.5); MEAN CORPUSCULAR VOLUME 102.6 fl (80.0-96.0); MONO # 0.6 10^3/uL (0.0-0.8); MONO % 10.8 % (2.0-8.0); NEUTROPHILS # 2.8 10^3/uL (1.5-8.5); NEUTROPHILS % 53.3 % (36.0-66.0); PLATELET COUNT, AUTOMATED 183 10^3/uL (150-450); RED BLOOD COUNT 3.78 10^6/uL (4.00-5.40); WHITE BLOOD COUNT 5.2 10^3/uL (4.0-10.0)
[2024-03-02 11:31] LABS: INR 0.94; PARTIAL THROMBOPLASTIN TIME 27.3 SECONDS (24.8-34.2); PROTHROMBIN TIME 12.3 SECONDS (12.5-14.5)
[2024-03-02 11:33] LABS: ALBUMIN 3.5 G/DL (3.2-5.2); ALKALINE PHOSPHATASE 47 U/L (46-116); ALT/SGPT 22 U/L (7.0-40); AST/SGOT 12 U/L (<34); BILIRUBIN,TOTAL 0.5 MG/DL (0.3-1.2); BLOOD UREA NITROGEN 17 MG/DL (9-23); CALCIUM LEVEL 9.2 MG/DL (8.3-10.6); CARBON DIOXIDE LEVEL 30 MMOL/L (20-31); CHLORIDE LEVEL 108 MMOL/L (98-107); CREATININE FOR GFR 0.74 MG/DL (0.55-1.30); GLOMERULAR FILTRATION RATE > 60.0 (>32); GLUCOSE, FASTING 100 MG/DL (74-106); IRON (FE) 90 UG/DL (50-170); PERCENT SATURATION 30.4 % (13.2-45.0); POTASSIUM SERUM 4.3 MMOL/L (3.5-5.1); SODIUM LEVEL 140 MMOL/L (136-145); TOTAL IRON BINDING CAPACITY 296 UG/DL (250-425); TOTAL PROTEIN 5.9 G/DL (5.7-8.2)
[2024-03-02 11:35] LABS: FERRITIN 74.5 NG/ML (7.3-270.7); HEMOGLOBIN A1c 5.6 % (4.0-6.0); VITAMIN B12 LEVEL 855 PG/ML (211-911)
== END ==
LOC: M LABDRAWC 11:09
PROVIDERS: ATTEND Physician Assistant Surgical
DX: Z01.812 Encounter for preprocedural laboratory examination (principal); D64.9 Anemia, unspecified; Z13.1 Encounter for screening for diabetes mellitus

== ENCOUNTER → 2024-04-19 | Outpatient (REF) | payer MEDICARE, OTHER ==
[~2024-04-19] MED LIST changes: +APPLTAB3 PO; +MONT5CHW10 PO
[2024-04-19 12:22] LABS: BASO % 0.7 % (0.0-1.0); EOS # 0.1 10^3/uL (0.0-0.5); EOS % 2.6 % (0.0-3.0); HEMATOCRIT 39.9 % (36.0-47.0); HEMOGLOBIN 13.3 g/dl (12.0-15.5); LYMPH # 1.6 10^3/uL (1.5-5.0); LYMPH % 38.2 % (24.0-44.0); MEAN CORPUSCULAR HEMOGLOBIN 34.3 pg (27.0-33.0); MEAN CORPUSCULAR HGB CONC 33.3 g/dl (32.0-36.5); MEAN CORPUSCULAR VOLUME 102.8 fl (80.0-96.0); MONO # 0.9 10^3/uL (0.0-0.8); MONO % 21.2 % (2.0-8.0); NEUTROPHILS # 1.6 10^3/uL (1.5-8.5); NEUTROPHILS % 36.8 % (36.0-66.0); PLATELET COUNT, AUTOMATED 179 10^3/uL (150-450); RED BLOOD COUNT 3.88 10^6/uL (4.00-5.40); WHITE BLOOD COUNT 4.3 10^3/uL (4.0-10.0)
[2024-04-19 12:56] LABS: ALBUMIN 3.7 G/DL (3.2-5.2); ALKALINE PHOSPHATASE 48 U/L (46-116); ALT/SGPT 20 U/L (7.0-40); AST/SGOT 13 U/L (<34); BILIRUBIN,TOTAL 0.4 MG/DL (0.3-1.2); BLOOD UREA NITROGEN 16 MG/DL (9-23); CALCIUM LEVEL 9.5 MG/DL (8.3-10.6); CARBON DIOXIDE LEVEL 30 MMOL/L (20-31); CHLORIDE LEVEL 109 MMOL/L (98-107); CREATININE FOR GFR 0.88 MG/DL (0.55-1.30); GLOMERULAR FILTRATION RATE > 60.0 (>32); GLUCOSE, FASTING 95 MG/DL (74-106); POTASSIUM SERUM 4.4 MMOL/L (3.5-5.1); SODIUM LEVEL 143 MMOL/L (136-145); THYROID STIMULATING HORMONE 1.596 uIU/ML (0.55-4.78); TOTAL PROTEIN 6.5 G/DL (5.7-8.2)
== END ==
LOC: M LABDRAWC 11:51
PROVIDERS: ATTEND Family Medicine
DX: J44.9 Chronic obstructive pulmonary disease, unspecified (principal); E07.9 Disorder of thyroid, unspecified; I10 Essential (primary) hypertension

== ENCOUNTER → 2024-08-03 | Outpatient (REF) | payer MEDICARE, OTHER ==
[2024-08-03 12:34] LABS: BASO % 0.6 % (0.0-1.0); EOS # 0.1 10^3/uL (0.0-0.5); HEMATOCRIT 40.1 % (36.0-47.0); HEMOGLOBIN 12.9 g/dl (12.0-15.5); LYMPH # 1.6 10^3/uL (1.5-5.0); LYMPH % 23.8 % (24.0-44.0); MEAN CORPUSCULAR HEMOGLOBIN 33.8 pg (27.0-33.0); MEAN CORPUSCULAR HGB CONC 32.2 g/dl (32.0-36.5); MONO # 0.7 10^3/uL (0.0-0.8); MONO % 10.3 % (2.0-8.0); NEUTROPHILS # 4.3 10^3/uL (1.5-8.5); PLATELET COUNT, AUTOMATED 243 10^3/uL (150-450); RED BLOOD COUNT 3.82 10^6/uL (4.00-5.40); WHITE BLOOD COUNT 6.9 10^3/uL (4.0-10.0)
[2024-08-03 12:52] LABS: ALBUMIN 3.7 G/DL (3.2-5.2); ALKALINE PHOSPHATASE 54 U/L (35-104); ALT/SGPT 16 U/L (7.0-40); AST/SGOT 13 U/L (<34); BILIRUBIN,TOTAL 0.4 MG/DL (0.3-1.2); BLOOD UREA NITROGEN 13 MG/DL (9-23); CALCIUM LEVEL 10.2 MG/DL (8.3-10.6); CARBON DIOXIDE LEVEL 31 MMOL/L (20-31); CHLORIDE LEVEL 105 MMOL/L (98-107); GLOMERULAR FILTRATION RATE > 60.0 (>32); GLUCOSE, FASTING 93 MG/DL (74-106); POTASSIUM SERUM 4.1 MMOL/L (3.5-5.1); SODIUM LEVEL 138 MMOL/L (136-145); TOTAL PROTEIN 6.7 G/DL (5.7-8.2)
[2024-08-03 12:54] LABS: THYROID STIMULATING HORMONE 1.624 uIU/ML (0.55-4.78)
== END ==
LOC: M LABDRAWC 11:32
PROVIDERS: ATTEND Family Medicine
DX: K21.9 Gastro-esophageal reflux disease without esophagitis (principal); I10 Essential (primary) hypertension; E07.9 Disorder of thyroid, unspecified

== ENCOUNTER → 2025-06-13 | Outpatient (REF) | payer MEDICARE, OTHER ==
[2025-06-13 14:57] LABS: BASO # 0.0 10^3/uL (0.0-0.2); BASO % 0.5 % (0.0-1.0); EOS # 0.1 10^3/uL (0.0-0.5); EOS % 1.5 % (0.0-3.0); LYMPH # 1.8 10^3/uL (1.5-5.0); LYMPH % 30.8 % (24.0-44.0); MONO # 0.7 10^3/uL (0.0-0.8); MONO % 12.2 % (2.0-8.0); NEUTROPHILS # 3.2 10^3/uL (1.5-8.5); NEUTROPHILS % 54.7 % (36.0-66.0); PLATELET COUNT, AUTOMATED 208 10^3/uL (150-450)
[2025-06-13 15:05] LABS: ALT/SGPT 20.0 U/L (7.0-40); AST/SGOT 17.0 U/L (<34); CALCIUM LEVEL 9.4 MG/DL (8.3-10.6); CARBON DIOXIDE LEVEL 30.0 MMOL/L (20-31); CHLORIDE LEVEL 107.0 MMOL/L (98-107); CHOLESTEROL LEVEL 213.0 MG/DL (<200); CHOLESTEROL RISK RATIO 2.76 (<5); CREATININE FOR GFR 0.79 MG/DL (0.55-1.30); GLOMERULAR FILTRATION RATE 73.7 (>32); LDL CHOLESTEROL 127.9 MG/DL (<100); NON-HDL-C 135.9 MG/DL; POTASSIUM SERUM 4.4 MMOL/L (3.5-5.1); SODIUM LEVEL 144.0 MMOL/L (136-145); TRIGLYCERIDES LEVEL 40.0 MG/DL (<150)
== END ==
LOC: M LABDRAWC 13:31
PROVIDERS: ATTEND Family Medicine
DX: E78.00 Pure hypercholesterolemia, unspecified (principal); I10 Essential (primary) hypertension; E07.9 Disorder of thyroid, unspecified